=== PATIENT | male | born 1970 | race American Indian/Alaskan Native ===

== ENCOUNTER 2021-10-15 11:57 | Emergency (ER) | payer BC ==
[2021-10-15] MEDS ORDERED: SULFAMETHOXAZOLE/TRIMETHOPRIM 800/160MG DS TAB PO ONE (16:26)
[2021-10-15] MEDS ORDERED: oxyCODONE /ACETAMINOPHEN 5-325MG TAB PO ONE (16:27)
--- NOTE | 2021-10-15 16:48 | Emergency Department Report ---
- General Chief complaint: Skin/Abscess/Foreign Body Stated complaint: POSS CYST/ABCESS Time Seen by Provider: 10/15/21 16:00 Source: patient Mode of arrival: Ambulatory Limitations: No Limitations - History of Present Illness Initial comments: 51-year-old black male with a past medical history of hypertension presents to the emergency department for evaluation of pain and swelling under scrotal sac. He states that he noticed pain in and swelling on Friday and that has gotten progressively worse. He states while waiting in the waiting room, area persistently started to drain purulent fluid. He denies fever, abdominal pain, nausea, and vomiting. MD complaint: abscess/boil -: Gradual, days(s) (3) Tetanus Up to Date: yes Location: genitals Severity scale (0 -10): 10 Quality: aching Consistency: constant Worsens with: palpation, movement, other (Ambulation) Associated symptoms: denies other symptoms - Related Data Previous Rx's Medication Instructions Recorded Last Taken Type Acetaminophen/Codeine [Tylenol 1 tab PO Q6H PRN #12 tab 10/15/21 Unknown Rx /Codeine # 3 tab] Sulfamethoxazole/Trimethoprim 1 each PO BID #14 tab 10/15/21 Unknown Rx [Bactrim DS TAB] Allergies Allergy/AdvReac Type Severity Reaction Status Date / Time NSAIDS (Non-Steroidal AdvReac Unknown Verified 10/15/21 12:08 Anti-Inflamma Abscess Boil HPI - HPI Chief Complaint: Skin/Abscess/Foreign Body Stated Complaint: POSS CYST/ABCESS Time Seen by Provider: 10/15/21 16:00 Duration: 3 Days Location: Perianal Severity: Severe History: Yes Pain, Yes Purulent Drainage, Yes Previous History, No Fever, No Numbness, No Foreign Body, No Insect Bite Home Medications: Previous Rx's Medication Instructions Recorded Last Taken Type Acetaminophen/Codeine [Tylenol 1 tab PO Q6H PRN #12 tab 10/15/21 Unknown Rx /Codeine # 3 tab] Sulfamethoxazole/Trimethoprim 1 each PO BID #14 tab 10/15/21 Unknown Rx [Bactrim DS TAB] Allergies/Adverse Reactions: Allergies Allergy/AdvReac Type Severity Reaction Status Date / Time NSAIDS (Non-Steroidal AdvReac Unknown Verified 10/15/21 12:08 Anti-Inflamma ED Review of Systems ROS: Stated complaint: POSS CYST/ABCESS Other details as noted in HPI Comment: All other systems reviewed and negative Constitutional: denies: chills, fever, weakness Respiratory: denies: shortness of breath Cardiovascular: denies: chest pain, palpitations, dyspnea on exertion Gastrointestinal: denies: abdominal pain, nausea, vomiting Musculoskeletal: denies: back pain ED Past Medical Hx - Past Medical History Hx Hypertension: Yes (pt was taken off of medication) - Surgical History Past Surgical History?: No - Social History Smoking Status: Current Every Day Smoker - Medications Home Medications: Home Medications Medication Instructions Recorded Confirmed Last Taken Type Acetaminophen/Codeine [Tylenol 1 tab PO Q6H PRN #12 tab 10/15/21 Unknown Rx /Codeine # 3 tab] Sulfamethoxazole/Trimethoprim 1 each PO BID #14 tab 10/15/21 Unknown Rx [Bactrim DS TAB] ED Physical Exam - General Limitations: No Limitations General appearance: alert, in no apparent distress - Head Head exam: Present: atraumatic, normocephalic - Eye Eye exam: Present: normal appearance. Absent: conjunctival injection - Neck Neck exam: Present: normal inspection - Respiratory Respiratory exam: Absent: respiratory distress - Cardiovascular Cardiovascular Exam: Present: tachycardia - GI/Abdominal GI/Abdominal exam: Present: soft. Absent: distended, tenderness - Rectal Rectal exam: Present: tenderness (To the top left side near abscessed area.) - exam: Absent: testicular tenderness, urethral discharge, scrotal swelling External exam: Present: erythema, swelling, other (Abscessed area noted under area below scrotal sac and top of rectal area.) - Expanded Exam Expanded Male exam: Present: perineal induration. Absent: penile swelling, lesions, erythema, balanitis, priapism - Extremities Exam Extremities exam: Present: normal inspection, normal capillary refill. Absent: pedal edema, joint swelling, calf tenderness - Back Exam Back exam: Present: normal inspection. Absent: CVA tenderness (R), CVA tenderness (L) - Neurological Exam Neurological exam: Present: alert, oriented X3 - Psychiatric Psychiatric exam: Present: normal affect, normal mood - Skin Skin exam: Present: dry, intact, normal color ED Course Vital Signs 10/15/21 12:03 Temperature 97.9 F Pulse Rate 111 H Respiratory 18 Rate Blood Pressure 193/102 O2 Sat by Pulse 98 Oximetry - I & D Perineum Type of Procedure: Simple Site: Perineal area_scrotal sac not including scrotal sac to the top of her recta I & D Procedure: betadine prep Progress: Area anesthetized with 5 cc of 1% lidocaine then small incision placed with #11 blade. Moderate amount of purulent drainage noted. Patient tolerated well. ED Medical Decision Making - Medical Decision Making 51-year-old black male with a past medical history of hypertension presents to the emergency department for evaluation of pain and swelling under scrotal sac. He states that he noticed pain in and swelling on Friday and that has gotten progressively worse. He states while waiting in the waiting room, area persistently started to drain purulent fluid. He denies fever, abdominal pain, nausea, and vomiting. Patient noted to have abscess to perineal area under scrotal sac not to include scrotal area extending to above rectal area about 3 cm. Incision and drainage performed per my procedure note. Patient tolerated well. Patient will be discharged home with 7-day course of Bactrim along with Tylenol 3 to use as needed for pain. He is advised to take medications as prescribed and follow-up with primary care provider if no improvement or worsening symptoms. He verbalizes understanding of and agreement with plan of care. Critical care attestation.: If time is entered above; I have spent that time in minutes in the direct care of this critically ill patient, excluding procedure time. ED Disposition Clinical Impression: Perineal abscess Disposition: 01 HOME / SELF CARE / HOMELESS Is pt being admited?: No Does the pt Need Aspirin: No Condition: Stable Instructions: Skin Abscess, [id number] Additional Instructions: Take medications as prescribed. Follow-up with primary care provider if no improvement or worsening symptoms. Return to the emergency department as needed. Prescriptions: Sulfamethoxazole/Trimethoprim [Bactrim DS TAB] 1 each PO BID #14 tab Acetaminophen/Codeine [Tylenol /Codeine # 3 tab] 1 tab PO Q6H PRN #12 tab PRN Reason: Pain, Moderate (4-6) Referrals: LEONARD SPARROW MD [Staff Physician] - 3-5 Days Forms: Work/School Release Form(ED) Time of Disposition: 16:56
[2021-10-15 17:46] VITALS: BP 162/88
== END 2021-10-15 17:45 | disposition home or self-care (01) ==
LOC: ED 11:57
DX: L02.215 Cutaneous abscess of perineum (principal); I10 Essential (primary) hypertension; F17.200 Nicotine dependence, unspecified, uncomplicated; Z91.09 Other allergy status, other than to drugs and biological substances; Z79.899 Other long term (current) drug therapy
CPT/HCPCS: 99282